=== PATIENT | female | born 1960 | race Caucasian/White ===

== ENCOUNTER 2016-10-18 19:23 | Emergency (ER) | payer MEDICARE ==
[2016-10-18 19:34] VITALS: TEMP 98.2; BMI 25.8
[2016-10-18] MEDS ORDERED: MORPHINE 4 MG/ML INJECTION IV ONE (19:44)
[2016-10-18] MEDS ORDERED: ONDANSETRON HCL 4 MG/2 ML VIAL IV ONE (19:44)
[2016-10-18] MEDS ORDERED: NS 1,000 ML IV ONE ×2 (19:44→21:22)
[2016-10-18] MEDS ORDERED: Pharmacy Review for Metformin - IV Contrast Given SCH (20:00)
--- NOTE | 2016-10-18 20:04 | EDPRACDOC ---
- General Information Chief Complaint: Abdominal Pain Stated Complaint: ABD PAIN NAUSEATED Time Seen by Provider: 10/18/16 19:33 Information Source: Patient Mode Of Arrival: Car Home Medications: Home Medications Esomeprazole Mag Trihydrate [Nexium] 40 mg PO DAILY 01/08/13 Insulin Detemir [Levemir] 80 units SQ HS 01/08/13 Fluticasone Propionate [Flonase] 2 sprays PURA DAILY PRN 06/17/13 Insulin Aspart [Novolog Flexpen] 0 units SQ .SSI 06/17/13 Losartan Potassium [Cozaar] 100 mg PO DAILY 06/17/13 Paroxetine HCl [Paxil] 60 mg PO HS 06/17/13 Zolpidem Tartrate [Ambien] 10 mg PO HS PRN 06/17/13 Gabapentin [Neurontin] 800 mg PO .QAM & LUNCH 09/11/14 Glimepiride [Amaryl] 4 mg PO BID(JOHN) 09/11/14 Simvastatin [Zocor] 40 mg PO HS 09/11/14 Gabapentin [Neurontin] 1,600 mg PO HS 08/27/16 Aripiprazole [Abilify] 10 mg PO DAILY 10/18/16 Dicyclomine HCl [Bentyl] 10 mg PO Q6H 10/18/16 Folic Acid/Mv,Fe,Other Min [One Daily For Women Tablet] 1 tab PO DAILY 10/18/16 Gemfibrozil [Lopid] 600 mg PO BID 10/18/16 Hydrocodone Bit/Acetaminophen [[place] 7.5-325 Tablet] 1 tab PO BID 10/18/16 Metformin HCl 1,000 mg PO QHS 10/18/16 Metformin HCl 1,500 mg PO QAM 10/18/16 Ondansetron [Zofran Odt] 4 mg PO Q6H PRN #20 tab.rapdis 10/18/16 Phenazopyridine HCl [Pyridium] 200 mg PO TID #30 tablet 10/18/16 Sitagliptin Phosphate [Januvia] 100 mg PO DAILY 10/18/16 Sulfamethoxazole/Trimethoprim [Bactrim Ds Tablet] 1 tab PO BID #14 tab 10/18/16 Tramadol HCl [Ultram] 150 mg PO BID #14 tablet 10/18/16 Allergies/Adverse Reactions: Allergies Allergy/AdvReac Type Severity Reaction Status Date / Time Penicillins Allergy Severe RASH Verified 08/27/16 08:47 adhesive Allergy See Verified 08/27/16 08:47 Comments - History of Present Illness Onset: [employer] HPI: PT PRESENTS WITH RLQ/GENERALIZED ABDOMINAL PAIN THAT BEGAN [employer]. PT STATES THE PAIN IS SHARP, STABBING IN NATURE. STATES SHE IS NAUSEATED WITHOUT VOMITING. PT STATES SHE HAD HERNIA SURGERY IN WITH MESH PLACEMENT AND HAS HAD MILD PAIN SINCE THAT TIME. Pain Location: Reports: Diffuse, RLQ Pain Context: Reports: Spontaneous Pain Severity: Moderate Pain Quality: Reports: Sharp, Stabbing Pain Radiation: Reports: No Radiation : No Adult Abdominal History: Reports: Abdominal Surgery Female Abdominal History: Denies: Abdominal Surgery, UTI, Ectopic, PID, Urolithiasis, Similar Pain (dx) Modifying Factors: improves with: Nothing Female Associated Signs & Symptoms: Reports: Nausea Oral Intake: Decreased Urinary Output: Normal ED Past Medical History - History Reviewed Yes Nurses notes reviewed and agree except as marked - Patient Medical History Cardiac History: Reports: Hypertension, Hypercholesterolemia Respiratory History: Reports: Asthma Musculoskeletal History: Reports: Gout Psychological History: Reports: Depression, Anxiety, Bipolar Disorder. Denies: Substance Use Disorder Systemic History: Reports: Diabetes. Denies: Anemia Surgical History: Reports: Hysterectomy - Family Medical History Reports: Hypertension (PGM). Denies: Diabetes, Cancer, Stroke, Cardiac Disorders - Social Medical History Smoking Status: Heavy tobacco smoker (5 or more cigarettes/day or daily pipe/ cigar) Social History: Denies: Substance Use Disorder EDM Review of Systems - Review of Systems ROS Negative Except as Marked: Yes All systems reviewed and were negative except as marked - Physical Exam Constitutional: Alert (PT APPEARS UNCOMFORTABLE) Oriented to: Time, Person, Place Last recorded Vital Signs: Last Vital Signs Temp 98.2 F 10/18/16 19:31 Pulse 116 10/18/16 22:34 Resp 20 10/18/16 22:34 BP 149/85 10/18/16 22:34 Pulse Ox 95 10/18/16 22:34 Oxygen Pulse Oxygen Saturation 95 O2 Device Nasal Cannula Oxygen Flow Rate 2 Fraction of Inspired Oxygen ( FIO2) - HEENT Head: Normal ( normocephalic) Eye Exam: Normal (PERRL, EOMI, Sclera white) Oropharynx: Membranes Dry Tympanic Membrane: Normal Nose: No Symptoms Reported (septum midline) Neck: Normal (FROM, trachea at midline) - Respiratory/Cardiovascular Respiratory: Tachypnea Cardiovascular: Tachycardia - GI Auscultation: Normal (NABS) Palpation: Normal (Soft,No rebound or guarding, non distended) Tenderness: Diffuse, Moderate, RLQ Hurst's Sign: Negative Rectal Exam: Deferred - Musculoskeletal Back: Normal (Non-Tender) Extremities: Normal (Normal tone, Pulses 2+ No cyanosis or edema, FROM) - Integumentary Skin: Normal, Warm, Dry Lymphatics: Normal (no adenopathy) - Neurologic Memory Impaired: Normal Motor Function: Normal (Normal tone, Pulses 2+ No cyanosis or edema, FROM) Cranial Nerve: Normal (CN II-X11 intact sensation, strength 5/5) Cerebellar: Normal Mood Description: Normal Perception: Normal - Differential Diagnosis Appendicitis, Bowel Obstruction, Other - Results All Results Reviewed and Normal except as Highlighted below: Yes 10/18/16 20:15 10/18/16 20:15 WBC 14.0 xk/uL (3.8-10.8) H 10/18/16 20:15 RBC 4.08 xM/uL (4.20-5.40) L 10/18/16 20:15 Hgb 13.5 g/dL (12.0-16.0) 10/18/16 20:15 Hct 39.8 % (36-47) 10/18/16 20:15 MCV 98 fL (81-99) 10/18/16 20:15 MCH 33.1 pg (27-32) H 10/18/16 20:15 MCHC 33.9 g/dl (33-36) 10/18/16 20:15 RDW 14.4 % (11.5-14.5) 10/18/16 20:15 Plt Count 263 xk/uL (130-400) 10/18/16 20:15 MPV 9.1 fL (7.4-10.4) 10/18/16 20:15 Neut % (Auto) 68.1 % (45-76) 10/18/16 20:15 Lymph % (Auto) 23.2 % (17-44) 10/18/16 20:15 [place] % (Auto) 6.3 % (3-10) 10/18/16 20:15 Eos % (Auto) 1.5 % (0-5) 10/18/16 20:15 Baso % (Auto) 0.9 % (0-2) 10/18/16 20:15 Absolute Neuts (auto) 9.52 xk/uL (1.7-8.2) H 10/18/16 20:15 Absolute Lymphs (auto) 3.22 xk/uL (0.65-4.75) 10/18/16 20:15 PT 10.4 SEC (9.2-11.2) 10/18/16 20:15 INR 1.0 10/18/16 20:15 APTT 23.7 SEC (22-35) 10/18/16 20:15 Sodium 138 mEq/L (137-146) 10/18/16 20:15 Potassium 3.9 mEq/L (3.5-5.1) 10/18/16 20:15 Chloride 99 mEq/L (98-107) 10/18/16 20:15 Carbon Dioxide 26 mMOL/L (22-33) 10/18/16 20:15 Anion Gap 17 mEq/L (8-16) H 10/18/16 20:15 BUN 18 MG/DL (7-17) H 10/18/16 20:15 Creatinine 0.70 MG/DL (0.52-1.04) 10/18/16 20:15 Estimated GFR (MDRD) > 60 mL/min (>=60) 10/18/16 20:15 Glucose 259 mg/dL (70-99) H 10/18/16 20:15 Calculated Osmolality 277 MOs/Kg (270-290) 10/18/16 20:15 Lactic Acid 2.5 mEq/L (0.7-2.1) H 10/18/16 20:15 Calcium 10.8 MG/DL (8.4-10.2) H 10/18/16 20:15 Total Bilirubin 0.6 MG/DL (0.2-1.3) 10/18/16 20:15 AST 25 IU/L (14-36) 10/18/16 20:15 ALT 44 IU/L (9-52) 10/18/16 20:15 Alkaline Phosphatase 111 IU/L (38-126) 10/18/16 20:15 Creatine Kinase 55 IU/L (30-134) 10/18/16 20:15 Troponin I < 0.01 ng/mL (<.04) 10/18/16 20:15 Xkh-[id number] Pept 31 pg/mL (0-900) 10/18/16 20:15 Total Protein 8.1 G/DL (6.3-8.2) 10/18/16 20:15 Albumin 4.6 G/DL (3.5-5.0) 10/18/16 20:15 Lipase 569 U/L (23-300) H 10/18/16 20:15 Urine Color Yellow 10/18/16 19:56 Urine Clarity Cldy 10/18/16 19:56 Urine pH 5.0 (5.0-8.0) 10/18/16 19:56 Ur Specific [place] 1.020 (1.003-1.035) 10/18/16 19:56 Urine Protein 2+ (NEG/TRACE) H 10/18/16 19:56 Urine Glucose (UA) 2+ (NEGATIVE) H 10/18/16 19:56 Urine Ketones 1+ (NEGATIVE) H 10/18/16 19:56 Urine Occult Blood 3+ (NEG/TRACE) H 10/18/16 19:56 Urine Nitrite Pos (NEGATIVE) H 10/18/16 19:56 Urine Bilirubin Neg (NEGATIVE) 10/18/16 19:56 Urine Urobilinogen <2.0 MG/DL (0-1) 10/18/16 19:56 Ur Leukocyte Esterase Trace (NEGATIVE) H 10/18/16 19:56 Urine RBC 5-10 (0-5) H 10/18/16 19:56 Urine WBC 30-40 (0-5) H 10/18/16 19:56 Urine WBC Clumps Present (NONE) H 10/18/16 19:56 Ur Epithelial Cells Occ 10/18/16 19:56 Urine Bacteria 2+ (NEG/FEW) H 10/18/16 19:56 Lab Results 10/18/16 10/18/16 10/18/16 20:15 20:15 20:15 WBC 14.0 H RBC 4.08 L Hgb 13.5 Hct 39.8 MCV 98 MCH 33.1 H MCHC 33.9 RDW 14.4 Plt Count 263 MPV 9.1 Neut % (Auto) 68.1 Lymph % (Auto) 23.2 [place] % (Auto) 6.3 Eos % (Auto) 1.5 Baso % (Auto) 0.9 Absolute Neuts (auto) 9.52 H Absolute Lymphs (auto) 3.22 PT 10.4 INR 1.0 APTT 23.7 Sodium Potassium Chloride Carbon Dioxide Anion Gap BUN Creatinine Estimated GFR (MDRD) Glucose Calculated Osmolality Lactic Acid 2.5 H Calcium Total Bilirubin AST ALT Alkaline Phosphatase Creatine Kinase Troponin I [id number]-[id number] Pept Total Protein Albumin Lipase Urine Color Urine Clarity Urine pH Ur Specific [place] Urine Protein Urine Glucose (UA) Urine Ketones Urine Occult Blood Urine Nitrite Urine Bilirubin Urine Urobilinogen Ur Leukocyte Esterase Urine RBC Urine WBC Urine WBC Clumps Ur Epithelial Cells Urine Bacteria 10/18/16 10/18/16 20:15 19:56 WBC RBC Hgb Hct MCV MCH MCHC RDW Plt Count MPV Neut % (Auto) Lymph % (Auto) [place] % (Auto) Eos % (Auto) Baso % (Auto) Absolute Neuts (auto) Absolute Lymphs (auto) PT INR APTT Sodium 138 Potassium 3.9 Chloride 99 Carbon Dioxide 26 Anion Gap 17 H BUN 18 H Creatinine 0.70 Estimated GFR (MDRD) > 60 Glucose 259 H Calculated Osmolality 277 Lactic Acid Calcium 10.8 H Total Bilirubin 0.6 AST 25 ALT 44 Alkaline Phosphatase 111 Creatine Kinase 55 Troponin I < 0.01 [id number]-[id number] Pept 31 Total Protein 8.1 Albumin 4.6 Lipase 569 H Urine Color Yellow Urine Clarity Cldy Urine pH 5.0 Ur Specific [place] 1.020 Urine Protein 2+ H Urine Glucose (UA) 2+ H Urine Ketones 1+ H Urine Occult Blood 3+ H Urine Nitrite Pos H Urine Bilirubin Neg Urine Urobilinogen <2.0 Ur Leukocyte Esterase Trace H Urine RBC 5-10 H Urine WBC 30-40 H Urine WBC Clumps Present H Ur Epithelial Cells Occ Urine Bacteria 2+ H - EKG EKG #1 EKG Time: 19:55 -: Yes EKG interpreted by me Rate: bpm: 124 [place]: RAD Rhythm: ST Block: None Hypertrophy: RVH ST: Normal Decision Time to Discharge: 22:47 - Departure Disposition: Home Condition: Stable Final Diagnosis: UTI (urinary tract infection) Qualifiers: Urinary tract infection type: acute cystitis Hematuria presence: with hematuria Qualified Code(s): N30.01 - Acute cystitis with hematuria Instructions: Urinary Tract Infection in Women (ED), Dysuria Education/Counseling Given To: Patient Education/Counseling Given Regarding: Diagnosis, Treatment, Prognosis, Follow Up Referrals: Vish Connor MD [Primary Care Provider] - One Week Prescriptions: New Ondansetron [Zofran Odt] 4 mg PO Q6H PRN #20 tab.rapdis PRN Reason: Nausea/Vomiting Phenazopyridine HCl [Pyridium] 200 mg PO TID #30 tablet Sulfamethoxazole/Trimethoprim [Bactrim Ds Tablet] 1 tab PO BID #14 tab Continue Tramadol HCl [Ultram] 150 mg PO BID #14 tablet No Action Insulin Detemir [Levemir] 80 units SQ HS Esomeprazole Mag Trihydrate [Nexium] 40 mg PO DAILY Losartan Potassium [Cozaar] 100 mg PO DAILY Zolpidem Tartrate [Ambien] 10 mg PO HS PRN PRN Reason: Sleep Or Insomnia Fluticasone Propionate [Flonase] 2 sprays PURA DAILY PRN PRN Reason: Nasal Allergy Symptoms Insulin Aspart [Novolog Flexpen] 0 units SQ .SSI Paroxetine HCl [Paxil] 60 mg PO HS Simvastatin [Zocor] 40 mg PO HS Gabapentin [Neurontin] 800 mg PO .QAM & LUNCH Glimepiride [Amaryl] 4 mg PO BID(JOHN) Gabapentin [Neurontin] 1,600 mg PO HS Metformin HCl 1,000 mg PO QHS Hydrocodone Bit/Acetaminophen [[place] 7.5-325 Tablet] 1 tab PO BID Gemfibrozil [Lopid] 600 mg PO BID Folic Acid/Mv,Fe,Other Min [One Daily For Women Tablet] 1 tab PO DAILY Aripiprazole [Abilify] 10 mg PO DAILY Metformin HCl 1,500 mg PO QAM Dicyclomine HCl [Bentyl] 10 mg PO Q6H Sitagliptin Phosphate [Januvia] 100 mg PO DAILY Additional Instructions: INCREASE FLUID INTAKE. FOLLOW UP WITH PRIMARY CARE PROVIDER NEXT WEEK. TAKE ALL ANTIBIOTICS PRESCRIBED. RETURN TO THE ED FOR WORSENING SYMPTOMS OR CONCERNS.
[2016-10-18 20:11] LABS: LEUKOCYTES/URINE TRACE (NEGATIVE); NITRITE/URINE POS (NEGATIVE); URINE OCCULT BLOOD 3+ (NEG/TRACE); WBC/URINE 30-40 (0-5)
--- NOTE | 2016-10-18 20:28 | DIRPT ---
CLINICAL DATA: Abdominal pain shortness of breath cough congestion EXAM: CHEST 2 VIEW COMPARISON: 02/07/2016 FINDINGS: The heart size and vascular pattern are normal. Lungs are clear. No consolidation or effusion. IMPRESSION: No active cardiopulmonary disease. Electronically Signed By: Stevan Conroy M.D. On: 10/18/2016 20:25
[2016-10-18 20:31] LABS: AUTOMATED BASOPHIL 0.9 % (0-2); AUTOMATED EOSINOPHIL 1.5 % (0-5); AUTOMATED LYMPH 23.2 % (17-44); AUTOMATED MONOCYTE 6.3 % (3-10); AUTOMATED NEUTROPHIL 68.1 % (45-76); MPV 9.1 fL (7.4-10.4)
[2016-10-18 20:41] LABS: PARTIAL THROMB. TIME 23.7 SEC (22-35)
[2016-10-18 20:42] LABS: BLOOD UREA NITROGEN 18 MG/DL (7-17); CALCIUM 10.8 MG/DL (8.4-10.2); CALCULATED OSMOLALITY 277 MOs/Kg (270-290); CHLORIDE 99 mEq/L (98-107); CPK TOTAL WITH POSSIBLE MB 55 IU/L (30-134); GLUCOSE 259 mg/dL (70-99); SODIUM LEVEL 138 mEq/L (137-146); TOTAL PROTEIN 8.1 G/DL (6.3-8.2)
[2016-10-18] MEDS ORDERED: CEFTRIAXONE 1 GM in D5W 100 ML IV ONE (20:51)
--- NOTE | 2016-10-18 22:22 | DIRPT ---
CLINICAL DATA: Right lower quadrant pain EXAM: CT ABDOMEN AND PELVIS WITH CONTRAST TECHNIQUE: Multidetector CT imaging of the abdomen and pelvis was performed using the standard protocol following bolus administration of intravenous contrast. CONTRAST: 100 mL Isovue 370 IV COMPARISON: CT abdomen 09/06/2016 FINDINGS: Lower chest: Lung bases clear without infiltrate or effusion Hepatobiliary: Fatty infiltration of the liver without focal liver lesion. Mild hepatomegaly. Cholecystectomy. Bile ducts nondilated Pancreas: Negative Spleen: Negative Adrenals/Urinary Tract: Normal kidneys. No renal mass or obstruction. Symmetric excretion of contrast. Urinary bladder is normal. Stomach/Bowel: Negative for bowel obstruction. No bowel edema. Normal appendix. Negative for diverticulitis. Vascular/Lymphatic: Mild atherosclerotic disease in the abdominal aorta without aneurysm. Normal IVC. No lymphadenopathy Reproductive: Hysterectomy. No pelvic mass. Other: No free fluid. Musculoskeletal: Moderate disc degeneration and spurring L5-S1. No acute bony abnormality. IMPRESSION: No acute abnormality. Normal appendix Fatty liver. Cholecystectomy. Electronically Signed By: Rikki Moss M.D. On: 10/18/2016 22:19
[2016-10-18] MEDS ORDERED: PHENAZOPYRIDINE 100 MG TAB PO ONE (22:37)
[2016-10-18 23:25] VITALS: BP 165/89; PULSE 112
== END 2016-10-18 23:23 | disposition home or self-care (01) ==
LOC: ED 19:23
DX: N30.01 Acute cystitis with hematuria (principal)
CPT/HCPCS: 36415; 71020; 74177; 80053; 81001; 82550; 83605; 83690; 83880; 84484; 85025; 85610; 85730; 87040; 87077; 87086; 87186; 93005; 96361; 96365; 96375; 99284; A9270; A9698; J0696; J2270; J2405; J7060; J3490